=== PATIENT | female | born 1975 | race Hispanic/Latino ===

== ENCOUNTER 2016-04-28 11:39 | Emergency (ER) | payer OTHER ==
[2016-04-28 12:59] LABS: MEAN CORPUSCULAR HEMOGLOBIN 28.3 pg (27.0-33.0); MEAN CORPUSCULAR HGB CONC 33.5 g/dl (32.0-36.5); MEAN CORPUSCULAR VOLUME 84.4 fl (80.0-96.0); RED CELL DISTRIBUTION WIDTH 13.3 % (11.5-14.5); WHITE BLOOD COUNT 8.6 K/mm3 (4.0-10.0)
--- NOTE | 2016-04-28 14:05 | REP ---
Clinical: Positive test with abdominal pain and cramping. Technique: Real time goel scale ultrasound examination using transabdominal and transvaginal technique with color Doppler evaluation of the maternal ovaries and gestation if possible. Findings: Heterogeneous retroverted retroflexed uterus measures 9.4 x 4.4 x 6.2 cm with suggestion for septate configuration. Decidual reaction thickens the endometrium to 2.5 cm without intrauterine identified. Maternal ovaries are normal in appearance and vascularity without torsion. Right ovary measures 3.1 x 2.2 x 2.5 cm and includes 1.6 cm hemorrhagic corpus luteal cyst. Right RI equal 0.57. Left ovary measures 2.6 x 2.6 x 2.8 cm; RI equal 0.54. No pelvic fluid. Impression: 1. No intrauterine identified. Differential diagnosis includes early as well as spontaneous and less likely ectopic (no pelvic fluid or adnexal mass). Correlation with serial HCG levels recommended and repeat ultrasound if necessary 2. Possible septate versus bicornuate uterine configuration. Signed by Eugene Spence MD 04/28/2016 01:56 P
[2016-04-28] MEDS ORDERED: MORPHINE 4 MG/ML 1ML SYRINGE As Ordered ONE (15:41)
--- NOTE | 2016-04-28 18:14 | EDDOCDS ---
Physician Documentation [facility] Name: Fabienne Ayala Age: 40 yrs Sex: Female : 1975 Arrival Date: 04/28/2016 Time: 11:39 Bed I7 / 29 Private MD: Other - Complete Info On Cds Disposition: 04/28/16 17:55 Discharged to Home/Self Care. Impression: Spontaneous . - Condition is Stable. - Discharge Instructions: Miscarriage. - Prescriptions for Naprosyn 500 mg Oral Tablet - take 1 tablet by ORAL route 2 times per day take with food; 30 tablet. - Medication Reconciliation, Local Pharmacy Hours form. - Follow up: Emergency Department; When: As needed; Reason: Worsening of conditions. Follow up: Ana Nunn, OB; When: Call to arrange an appointment; Reason: Wound/Symptom Recheck, Recheck today's complaints, Worsening of conditions, Continuance of care. - Problem is an ongoing problem. - Symptoms have improved. Historical: - Allergies: Dilaudid (Swelling); - Home Meds: 1. pre humera daily - PMHx: none; - PSHx: Cholecystectomy; Breast Reduction; vein removal; - Social history: Smoking status: Patient states was never smoker of tobacco. No barriers to communication noted, The patient speaks fluent Bahraini, Speaks appropriately for age. - Family history: Not pertinent. - : The pt / caregiver states he / she is not on anticoagulants. Home medication list is obtained from the patient. - Exposure Risk Screening:: None identified. 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 4 in. (162.56 cm) (R); Pain 8/10; 15:28 BP 111 / 70 RA Supine (auto/reg); Pulse 81; Resp 18; Temp 98.9(O); Pulse Ox 100% on rs6 R/A; Pain 7/10; 16:14 BP 93 / 54 LA Supine (auto/lg); Pulse 57; Resp 18; Temp 98.6(O); Pulse Ox 98% on R/A; rs6 Pain 0/10; 16:45 BP 97 / 54; Pulse 70; Resp 18; Pulse Ox 98% on R/A; Pain 7/10; dls 17:27 BP 100 / 55 RA Supine (auto/lg); Pulse 73; Resp 18; Pulse Ox 97% on R/A; rs6 18:07 BP 109 / 57; Pulse 85; Resp 18; Pulse Ox 98% on R/A; Pain 4/10; dls 11:41 Body Mass Index 35.53 (93.89 kg, 162.56 cm) gr2 MDM: 12:32 Complete Blood Count Ordered. EDMS 12:32 Hcg, Serum Quantitative Ordered. EDMS 12:32 Type & Screen Ordered. EDMS 12:32 Urinalysis Ordered. EDMS 12:32 Urine Culture Ordered. EDMS 12:32 US 1st trimester Ordered. EDMS 13:05 Financial registration complete. lg 13:12 Urinalysis Reviewed. btw 13:12 Complete Blood Count Reviewed. btw 13:18 TRANSVAGINAL US Ordered. EDMS 13:21 DUPLEX SCAN LIMITED (DOPPLER) Ordered. EDMS 13:42 Hcg, Serum Quantitative Reviewed. btw 13:42 Type & Screen Reviewed. btw 13:47 Type & Screen Reviewed. btw 15:15 [facility] [place] Agreement was scanned into [employer] and attached to record. lg 15:39 morphine 4 mg Sub-Q once ordered. btw 16:15 NS 0.9% 1000 ml IV at bolus once ordered. cc10 16:16 IV Saline Lock ordered. cc10 16:16 US 1st trimester Reviewed. cc10 Administered Medications: 15:43 Drug: morphine 4 mg [morphine 4 mg/mL intravenous cartridge (1 mL)] Route: Sub-Q; Site: dls left upper arm; 16:45 Drug: NS 0.9% 1000 ml [sodium chloride 0.9 % intravenous solution] Route: IV; Rate: dls bolus; Site: right hand; Signatures: Dispatcher [employer] EDMS Liliana Coats RN RN dls Raphael Trujillo, Reg Reg lg Mark Tamez PA PA btw Dunaway, Emily, RN RN ead Coniski, Colin PARupertC PARupertC cc10 The chart was reviewed and I authenticate all verbal orders and agree with the evaluation and treatment provided.Corrections: (The following items were deleted from the chart) 16:15 16:15 Large bore IV x 2 ordered. cc10 cc10 Attachments: 15:15 [facility] Payment Agreement lg MTDD
--- NOTE | 2016-04-28 18:14 | EDDOCDS ---
Nurse's Notes [facility] Name: Fabienne Ayala Age: 40 yrs Sex: Female : 1975 Arrival Date: 04/28/2016 Time: 11:39 Bed I7 / 29 Private MD: Other - Complete Info On Cds Diagnosis: Spontaneous Presentation: 04/28 11:54 Presenting complaint: Patient states: c/o abdominal cramping, heavy vaginal bleeding, ead sudden onset this morning while at work. reports going through 2 pads in one hour. LMP 03/14/16. Risk factors: The patient reports no loss of conciousness prior to arrival. This patient has not had a hysterectomy. This patient has not begun menopause. Adult Sepsis Screening: The patient does not have new or worsening altered mentation. Patient's respiratory rate is less than 22. Systolic blood pressure is greater than 100. Patient has a qSOFA score of 0- Negative Sepsis Screen. Suicide/Homicide risk assessment- the patient denies having any suicidal and/or homicidal ideations and does not present with any other emotional, behavioral or mental health complaints. Status: The patient is a dependent. Transition of care: patient was not received from another setting of care. 11:54 Acuity: MIKEY Level 3 ead 11:54 Method Of Arrival: Walkin/Carried/Asstd ead Triage Assessment: 11:57 General: Appears in no apparent distress, uncomfortable, Behavior is appropriate for ead age, cooperative. Pain: Location: abdomen Pain currently is 7 out of 10 on a pain scale. HIV screening NA for this visit Offered previously. GI: Reports cramping. : Reports vaginal bleeding that is with clots heavy flow. Derm: Skin is pink, warm & dry. 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 pre humera daily - PMHx: none; - PSHx: Cholecystectomy; Breast Reduction; vein removal; - Social history: Smoking status: Patient states was never smoker of tobacco. No barriers to communication noted, The patient speaks fluent Cook Islander, Speaks appropriately for age. - Family history: Not pertinent. - : The pt / caregiver states he / she is not on anticoagulants. Home medication list is obtained from the patient. - Exposure Risk Screening:: None identified. Screenin:44 Screening information is obtained from the patient. Fall risk: No risks identified. dls Assistance ADL's: requires no assistance with activities of daily living. Abuse/DV Screen: The patient / caregiver reports he/she is: not in a situation that causes fear, pain or injury. Nutritional screening: No deficits noted. Advance Directives: Currently, there is no health care proxy. There is no active DNR order. There is no living will. 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 Advance directive information has not previously been placed in an [facility] medical record. home support is adequate. Assessment: 13:00 Musculoskeletal: No deficits noted. dls 14:00 General: Pt to ultrasound per pad changed prior to exam moderate amount of bright red dls vaginal bleeding without clots noted.. 15:45 General: Appears in no apparent distress, well developed, well nourished, well groomed, dls Behavior is cooperative. Neurological: No deficits noted. EENT: No deficits noted. Cardiovascular: No deficits noted. Respiratory: No deficits noted. GI: No deficits noted. : Reports vaginal bleeding that is bright red. Derm: No deficits noted. 15:46 General: Medicated pt Sub Q for abdominal discomfort awaiting evaluation by Dr missy Macedo. Pts vaginal bleeding has slowed down to light spotting at present time.. 16:46 General: Pts vs repeated B/P is dropping provider notified IV established right hand IV dls bolus infusing well pt c/o lower abdominal cramping bleeding remains spotting family at bedside.. 17:45 General: Dr Macedo here to evaluate pt.. dls Vital Signs: 11:41 BP 138 / 66; Pulse 83; Resp 18 S; Temp 97.9(O); Pulse Ox 100% on R/A; Weight 93.89 kg gr2 (R); Height 5 ft. 4 in. (162.56 cm) (R); Pain 8/10; 15:28 BP 111 / 70 RA Supine (auto/reg); Pulse 81; Resp 18; Temp 98.9(O); Pulse Ox 100% on rs6 R/A; Pain 7/10; 16:14 BP 93 / 54 LA Supine (auto/lg); Pulse 57; Resp 18; Temp 98.6(O); Pulse Ox 98% on R/A; rs6 Pain 0/10; 16:45 BP 97 / 54; Pulse 70; Resp 18; Pulse Ox 98% on R/A; Pain 7/10; dls 17:27 BP 100 / 55 RA Supine (auto/lg); Pulse 73; Resp 18; Pulse Ox 97% on R/A; rs6 18:07 BP 109 / 57; Pulse 85; Resp 18; Pulse Ox 98% on R/A; Pain 4/10; dls 11:41 Body Mass Index 35.53 (93.89 kg, 162.56 cm) gr2 Vitals: 11:41 Log In Time: April 28, 2016 at 11:41. gr2 ED Course: 11:41 Patient visited by Zayda Valentine. gr2 11:41 Other - Complete Info On Cds is Private Physician. gr2 11:41 Patient moved to Waiting gr2 11:42 Patient visited by Zayda Valentine. gr2 11:42 Patient moved to Pre RCE gr2 11:55 Triage Initiated ead 12:13 Patient moved to Triage 1 ar3 12:17 Mark Tamez PA is PHCP. btw 12:[address] MD is Attending Physician. btw 12:19 Patient visited by Mark Tamez PA. btw 12:31 Liliana Coats, RN is Primary Nurse. jc4 12:31 Patient moved to I7 jc4 12:39 Urinalysis Sent. ead 12:39 Urine Culture Sent. ead 12:52 Pt greeted and oriented to ED. Patient advised of names of staff involved in care, rs6 location of call mckenna, wait times and NPO status. Accompanied by Significant Other, Patient has correct armband on for positive identification. Placed in gown. Bed in low position. Call light in reach. Side rails up X 1. Assisted to bathroom. Cardiac monitoring not applicable on this patient. 12:52 Complete Blood Count Sent. rs6 12:52 Hcg, Serum Quantitative Sent. rs6 12:52 Type & Screen Sent. rs6 12:53 Patient visited by Sue Girard PCA. rs6 13:15 Patient moved to Ultrasound sm5 13:49 Patient moved to I7 / rs6 14:33 US 1st trimester Returned. EDMS 15:02 Patient visited by Liliana Coats, RN. dls 15:11 Patient name changed from Fabienne\S\E\S\Ayala\S\ to Fabienne\S\Linda\S\Ayala. EDMS 15:15 [facility] Payment Agreement was scanned into [employer] and attached to record. lg 15:29 Patient visited by Sue Girard, EDGE WORKER. rs6 15:44 The patient / caregiver is instructed regarding the plan of care and ED course. dls 16:00 PHCP role handed off by Mark Tamez PA cc10 16:00 Balbir Martinez PA-C is PHCP. cc10 16:15 Patient visited by Sue Girard, EDGE WORKER. rs6 17:28 Patient visited by Sue Girard EDGE WORKER. rs6 17:55 nAa Nunn OB is Referral Physician. cc10 18:08 Discontinued IV lock intact, bleeding controlled, pressure dressing applied, No dls redness/swelling at site. No procedures done that require assistance. Administered Medications: 15:43 Drug: morphine 4 mg [morphine 4 mg/mL intravenous cartridge (1 mL)] Route: Sub-Q; Site: dls left upper arm; 16:45 Drug: NS 0.9% 1000 ml [sodium chloride 0.9 % intravenous solution] Route: IV; Rate: dls bolus; Site: right hand; Order Results: Lab Order: Complete Blood Count; SPEC'M 04/28/16 12:50 Test: WHITE BLOOD COUNT; Value: 8.6; Range: 4.0-10.0; Units: K/mm3; Status: F Test: RED BLOOD COUNT; Value: 4.92; Range: 4.00-5.40; Units: M/mm3; Status: F Test: HEMOGLOBIN; Value: 13.9; Range: 12.0-16.0; Units: g/dl; Status: F Test: HEMATOCRIT; Value: 41.5; Range: 36.0-47.0; Units: %; Status: F Test: MEAN CORPUSCULAR VOLUME; Value: 84.4; Range: 80.0-96.0; Units: fl; Status: F Test: MEAN CORPUSCULAR HEMOGLOBIN; Value: 28.3; Range: 27.0-33.0; Units: pg; Status: F Test: MEAN CORPUSCULAR HGB CONC; Value: 33.5; Range: 32.0-36.5; Units: g/dl; Status: F Test: RED CELL DISTRIBUTION WIDTH; Value: 13.3; Range: 11.5-14.5; Units: %; Status: F Test: PLATELET COUNT, AUTOMATED; Value: 206; Range: 150-450; Units: k/mm3; Status: F Lab Order: Hcg, Serum Quantitative; [facility] 04/28/16 12:50 Test: HCG, SERUM QUANTITATIVE; Value: 6813; Units: MIU/ML; Status: F Test Note: ; GESTATIONAL AGE APPROXIMATE HCG RANGE (MIU/ML) 0.2-1 WEEK 5-50 1-2 WEEKS 50-500 2-3 WEEKS 100-5,000 3-4 WEEKS 500-10,000 4-5 WEEKS 1,000-50,000 5-6 WEEKS 10,000-100,000 6-8 WEEKS 15,000-200,000 2-3 MONTHS 10,000-100,000 NON FEMALES LESS THAN 3.0 Patient samples may contain human heterophilic antibodies that could react with immunoassays to give falsely elevated or depressed results. This assay has been designed to minimize interference from heterophilic antibodies. Elevated hCG levels have also been associated with trophoblastic disease and nontrophoblastic neoplasms. The possibility of having these diseases should be considered before a diagnosis of is made. This test is not intended for use as a surrogate marker for aiding in the diagnosis or monitoring the treatment of cancer patients. Siemens TraderTools methodology. Lab Order: Type & Screen; [facility]04/28/16 12:50 Test: BLOOD TYPE; Value: O POS; Status: F Test: AB SCREEN (INDIRECT [place])GEL; Value: NEGATIVE; Status: F Lab Order: Urinalysis; [facility]04/28/16 12:39 Test: APPEARANCE, URINE; Value: CLEAR; Range: CLEAR; Status: F Test: COLOR, URINE; Value: STRAW; Range: YELLOW; Status: F Test: PH,URINE; Value: 6.0; Range: 5.0-9.0; Units: UNITS; Status: F Test: SPECIFIC GRAVITY URINE AUTO; Value: 1.002; Range: 1.002-1.035; Status: F Test: PROTEIN, URINE AUTO; Value: NEGATIVE; Range: NEGATIVE; Units: mg/dL; Status: F Test: GLUCOSE, URINE (UA) AUTO; Value: NEGATIVE; Range: NEGATIVE; Units: mg/dL; Status: F Test: KETONE, URINE AUTO; Value: NEGATIVE; Range: NEGATIVE; Units: mg/dL; Status: F Test: UROBILINOGEN, URINE AUTO; Value: 0.2; Range: 0.0-2.0; Units: mg/dL; Status: F Test: BILIRUBIN, URINE AUTO; Value: NEGATIVE; Range: NEGATIVE; Status: F Test: NITRITE, URINE AUTO; Value: NEGATIVE; Range: NEGATIVE; Status: F Test: LEUKOCYTE ESTERASE, URINE AUTO; Value: NEGATIVE; Range: NEGATIVE; Status: F Test: BLOOD, URINE BLOOD; Value: 3+; Range: NEGATIVE; Abnormal: Above high normal; Status: F Test: WBC, URINE AUTO; Value: 1; Range: 0-3; Units: /HPF; Status: F Test: RBC, URINE AUTO; Value: 13; Range: 0-3; Abnormal: Above high normal; Units: /HPF; Status: F Test: BACTERIA, URINE AUTO; Value: 1+; Range: NEGATIVE; Abnormal: Above high normal; Status: F Test: SQUAMOUS EPITHELIAL CELL UR AU; Value: 0; Range: 0-6; Units: /HPF; Status: F Test: HYALINE CAST, URINE AUTO; Value: 0; Range: 0-1; Units: /LPF; Status: F Radiology Order: US 1st trimester Test: US 1st trimester REASON FOR EXAMINATION: Bleeding; Clinical: Positive test with abdominal pain and cramping.; ; Technique: Real time goel scale ultrasound examination using transabdominal and; transvaginal technique with color Doppler evaluation of the maternal ovaries and; gestation if possible.; ; Findings:; Heterogeneous retroverted retroflexed uterus measures 9.4 x 4.4 x 6.2 cm with; suggestion for septate configuration. Decidual reaction thickens the endometrium; to 2.5 cm without intrauterine identified. Maternal ovaries are normal; in appearance and vascularity without torsion. Right ovary measures 3.1 x 2.2 x; 2.5 cm and includes 1.6 cm hemorrhagic corpus luteal cyst. Right RI equal 0.57.; Left ovary measures 2.6 x 2.6 x 2.8 cm; RI equal 0.54. No pelvic fluid.; ; Impression:; 1. No intrauterine identified. Differential diagnosis includes early; as well as spontaneous and less likely ectopic (no; pelvic fluid or adnexal mass). Correlation with serial HCG levels recommended and; repeat ultrasound if necessary; 2. Possible septate versus bicornuate uterine configuration.; ; ; Signed by; Eugene Spence MD 04/28/2016 01:56 P; Outcome: 17:55 Discharge ordered by Provider. cc10 18:08 Discharge Assessment: Patient awake, alert and oriented x 3. No cognitive and/or dls functional deficits noted. Patient verbalized understanding of disposition instructions. patient administered narcotics - yes. Pt provided with safe discharge. The following High Risk Discharge criteria are identified: None. Discharged to home via wheelchair, with significant other. Condition: stable Condition: improved. Discharge instructions given to patient, Instructed on discharge instructions, follow up and referral plans. medication usage, Demonstrated understanding of instructions, medications, Pt was receptive of discharge instructions/ teaching. Prescriptions given X 1. Ultrasound Study completed. Property sent home with patient. 18:13 Patient left the ED. dls Signatures: Dispatcher [employer] EDMS Liliana Coats RN RN dls Raphael Trujillo, Randall Reg lg Keila Robb sm5 Tisha Fagan, EDGE WORKER EDGE WORKER ar3 Mark Tamez PA PA btw Castle, Jennifer, RN RN jc4 Zayda Valentine gr2 Lin Kim,RN RN Balbir Yee PACole PA-C cc10 Sue Girard, EDGE WORKER EDGE WORKER rs6 Corrections: (The following items were deleted from the chart) 11:57 11:54 Presenting complaint: Patient states: c/o abdominal cramping, heavy vaginal ead bleeding. reports going through 2 pads in one hour. ead 11:57 11:54 Risk factors: The patient reports no loss of conciousness prior to arrival. This ead patient has not had a hysterectomy. This patient has not begun menopause. ead 12:02 11:54 Presenting complaint: Patient states: c/o abdominal cramping, heavy vaginal ead bleeding. reports going through 2 pads in one hour. LMP 03/14/16. ead MTDD
--- NOTE | 2016-04-30 19:14 | EDDOCDS ---
Nurse's Notes [facility] Name: Fabienne Ayala Age: 40 yrs Sex: Female : 1975 Arrival Date: 04/28/2016 Time: 11:39 Bed I7 / 29 Private MD: Other - Complete Info On Cds Diagnosis: Spontaneous Presentation: 04/28 11:54 Presenting complaint: Patient states: c/o abdominal cramping, heavy vaginal bleeding, ead sudden onset this morning while at work. reports going through 2 pads in one hour. LMP 03/14/16. Risk factors: The patient reports no loss of conciousness prior to arrival. This patient has not had a hysterectomy. This patient has not begun menopause. Adult Sepsis Screening: The patient does not have new or worsening altered mentation. Patient's respiratory rate is less than 22. Systolic blood pressure is greater than 100. Patient has a qSOFA score of 0- Negative Sepsis Screen. Suicide/Homicide risk assessment- the patient denies having any suicidal and/or homicidal ideations and does not present with any other emotional, behavioral or mental health complaints. Status: The patient is a dependent. Transition of care: patient was not received from another setting of care. 11:54 Acuity: MIKEY Level 3 ead 11:54 Method Of Arrival: Walkin/Carried/Asstd ead Triage Assessment: 11:57 General: Appears in no apparent distress, uncomfortable, Behavior is appropriate for ead age, cooperative. Pain: Location: abdomen Pain currently is 7 out of 10 on a pain scale. HIV screening NA for this visit Offered previously. GI: Reports cramping. : Reports vaginal bleeding that is with clots heavy flow. Derm: Skin is pink, warm & dry. 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 pre humera daily - PMHx: none; - PSHx: Cholecystectomy; Breast Reduction; vein removal; - Social history: Smoking status: Patient states was never smoker of tobacco. No barriers to communication noted, The patient speaks fluent Somali, Speaks appropriately for age. - Family history: Not pertinent. - : The pt / caregiver states he / she is not on anticoagulants. Home medication list is obtained from the patient. - Exposure Risk Screening:: None identified. Screenin:44 Screening information is obtained from the patient. Fall risk: No risks identified. dls Assistance ADL's: requires no assistance with activities of daily living. Abuse/DV Screen: The patient / caregiver reports he/she is: not in a situation that causes fear, pain or injury. Nutritional screening: No deficits noted. Advance Directives: Currently, there is no health care proxy. There is no active DNR order. There is no living will. 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 Advance directive information has not previously been placed in an [facility] medical record. home support is adequate. Assessment: 13:00 Musculoskeletal: No deficits noted. dls 14:00 General: Pt to ultrasound per pad changed prior to exam moderate amount of bright red dls vaginal bleeding without clots noted.. 15:45 General: Appears in no apparent distress, well developed, well nourished, well groomed, dls Behavior is cooperative. Neurological: No deficits noted. EENT: No deficits noted. Cardiovascular: No deficits noted. Respiratory: No deficits noted. GI: No deficits noted. : Reports vaginal bleeding that is bright red. Derm: No deficits noted. 15:46 General: Medicated pt Sub Q for abdominal discomfort awaiting evaluation by Dr missy Macedo. Pts vaginal bleeding has slowed down to light spotting at present time.. 16:46 General: Pts vs repeated B/P is dropping provider notified IV established right hand IV dls bolus infusing well pt c/o lower abdominal cramping bleeding remains spotting family at bedside.. 17:45 General: Dr Macedo here to evaluate pt.. dls Vital Signs: 11:41 BP 138 / 66; Pulse 83; Resp 18 S; Temp 97.9(O); Pulse Ox 100% on R/A; Weight 93.89 kg gr2 (R); Height 5 ft. 4 in. (162.56 cm) (R); Pain 8/10; 15:28 BP 111 / 70 RA Supine (auto/reg); Pulse 81; Resp 18; Temp 98.9(O); Pulse Ox 100% on rs6 R/A; Pain 7/10; 16:14 BP 93 / 54 LA Supine (auto/lg); Pulse 57; Resp 18; Temp 98.6(O); Pulse Ox 98% on R/A; rs6 Pain 0/10; 16:45 BP 97 / 54; Pulse 70; Resp 18; Pulse Ox 98% on R/A; Pain 7/10; dls 17:27 BP 100 / 55 RA Supine (auto/lg); Pulse 73; Resp 18; Pulse Ox 97% on R/A; rs6 18:07 BP 109 / 57; Pulse 85; Resp 18; Pulse Ox 98% on R/A; Pain 4/10; dls 11:41 Body Mass Index 35.53 (93.89 kg, 162.56 cm) gr2 Vitals: 11:41 Log In Time: April 28, 2016 at 11:41. gr2 ED Course: 11:41 Patient visited by Zayda Valentine. gr2 11:41 Other - Complete Info On Cds is Private Physician. gr2 11:41 Patient moved to Waiting gr2 11:42 Patient visited by Zayda Valentine. gr2 11:42 Patient moved to Pre RCE gr2 11:55 Triage Initiated ead 12:13 Patient moved to Triage 1 ar3 12:17 Mark Tamez PA is PHCP. btw 12:[address] MD is Attending Physician. btw 12:19 Patient visited by Mark Tamez PA. btw 12:31 Liliana Coats, RN is Primary Nurse. jc4 12:31 Patient moved to I7 jc4 12:39 Urinalysis Sent. ead 12:39 Urine Culture Sent. ead 12:52 Pt greeted and oriented to ED. Patient advised of names of staff involved in care, rs6 location of call mckenna, wait times and NPO status. Accompanied by Significant Other, Patient has correct armband on for positive identification. Placed in gown. Bed in low position. Call light in reach. Side rails up X 1. Assisted to bathroom. Cardiac monitoring not applicable on this patient. 12:52 Complete Blood Count Sent. rs6 12:52 Hcg, Serum Quantitative Sent. rs6 12:52 Type & Screen Sent. rs6 12:53 Patient visited by Sue Girard PCA. rs6 13:15 Patient moved to Ultrasound sm5 13:49 Patient moved to I7 / rs6 14:33 US 1st trimester Returned. EDMS 15:02 Patient visited by Liliana Coats, RN. dls 15:11 Patient name changed from Fabienne\S\E\S\Ayala\S\ to Fabienne\S\Linda\S\Ayala. EDMS 15:15 [facility] Payment Agreement was scanned into [employer] and attached to record. lg 15:29 Patient visited by Sue Girard STORAGE SPECIALIST. rs6 15:44 The patient / caregiver is instructed regarding the plan of care and ED course. dls 16:00 PHCP role handed off by Mark Tamez PA cc10 16:00 Balbir Martinez PA-C is PHCP. cc10 16:15 Patient visited by Sue Girard STORAGE SPECIALIST. rs6 17:28 Patient visited by Sue Girard STORAGE SPECIALIST. rs6 17:55 Ana Nunn OB is Referral Physician. cc10 18:08 Discontinued IV lock intact, bleeding controlled, pressure dressing applied, No dls redness/swelling at site. No procedures done that require assistance. 04/29 13:29 T-Sheet-- Draft Copy was scanned into [employer] and attached to record. gb Administered Medications: 04/28 15:43 Drug: morphine 4 mg [morphine 4 mg/mL intravenous cartridge (1 mL)] Route: Sub-Q; Site: dls left upper arm; 16:45 Drug: NS 0.9% 1000 ml [sodium chloride 0.9 % intravenous solution] Route: IV; Rate: dls bolus; Site: right hand; Order Results: Lab Order: Complete Blood Count; SPEC'M 04/28/16 12:50 Test: WHITE BLOOD COUNT; Value: 8.6; Range: 4.0-10.0; Units: K/mm3; Status: F Test: RED BLOOD COUNT; Value: 4.92; Range: 4.00-5.40; Units: M/mm3; Status: F Test: HEMOGLOBIN; Value: 13.9; Range: 12.0-16.0; Units: g/dl; Status: F Test: HEMATOCRIT; Value: 41.5; Range: 36.0-47.0; Units: %; Status: F Test: MEAN CORPUSCULAR VOLUME; Value: 84.4; Range: 80.0-96.0; Units: fl; Status: F Test: MEAN CORPUSCULAR HEMOGLOBIN; Value: 28.3; Range: 27.0-33.0; Units: pg; Status: F Test: MEAN CORPUSCULAR HGB CONC; Value: 33.5; Range: 32.0-36.5; Units: g/dl; Status: F Test: RED CELL DISTRIBUTION WIDTH; Value: 13.3; Range: 11.5-14.5; Units: %; Status: F Test: PLATELET COUNT, AUTOMATED; Value: 206; Range: 150-450; Units: k/mm3; Status: F Lab Order: Hcg, Serum Quantitative; SPEC 04/28/16 12:50 Test: HCG, SERUM QUANTITATIVE; Value: 6813; Units: MIU/ML; Status: F Test Note: ; GESTATIONAL AGE APPROXIMATE HCG RANGE (MIU/ML) 0.2-1 WEEK 5-50 1-2 WEEKS 50-500 2-3 WEEKS 100-5,000 3-4 WEEKS 500-10,000 4-5 WEEKS 1,000-50,000 5-6 WEEKS 10,000-100,000 6-8 WEEKS 15,000-200,000 2-3 MONTHS 10,000-100,000 NON FEMALES LESS THAN 3.0 Patient samples may contain human heterophilic antibodies that could react with immunoassays to give falsely elevated or depressed results. This assay has been designed to minimize interference from heterophilic antibodies. Elevated hCG levels have also been associated with trophoblastic disease and nontrophoblastic neoplasms. The possibility of having these diseases should be considered before a diagnosis of is made. This test is not intended for use as a surrogate marker for aiding in the diagnosis or monitoring the treatment of cancer patients. [employer] methodology. Lab Order: Type & Screen; SPEC04/28/16 12:50 Test: BLOOD TYPE; Value: O POS; Status: F Test: AB SCREEN (INDIRECT [place])GEL; Value: NEGATIVE; Status: F Lab Order: Urinalysis; SPEC 04/28/16 12:39 Test: APPEARANCE, URINE; Value: CLEAR; Range: CLEAR; Status: F Test: COLOR, URINE; Value: STRAW; Range: YELLOW; Status: F Test: PH,URINE; Value: 6.0; Range: 5.0-9.0; Units: UNITS; Status: F Test: SPECIFIC GRAVITY URINE AUTO; Value: 1.002; Range: 1.002-1.035; Status: F Test: PROTEIN, URINE AUTO; Value: NEGATIVE; Range: NEGATIVE; Units: mg/dL; Status: F Test: GLUCOSE, URINE (UA) AUTO; Value: NEGATIVE; Range: NEGATIVE; Units: mg/dL; Status: F Test: KETONE, URINE AUTO; Value: NEGATIVE; Range: NEGATIVE; Units: mg/dL; Status: F Test: UROBILINOGEN, URINE AUTO; Value: 0.2; Range: 0.0-2.0; Units: mg/dL; Status: F Test: BILIRUBIN, URINE AUTO; Value: NEGATIVE; Range: NEGATIVE; Status: F Test: NITRITE, URINE AUTO; Value: NEGATIVE; Range: NEGATIVE; Status: F Test: LEUKOCYTE ESTERASE, URINE AUTO; Value: NEGATIVE; Range: NEGATIVE; Status: F Test: BLOOD, URINE BLOOD; Value: 3+; Range: NEGATIVE; Abnormal: Above high normal; Status: F Test: WBC, URINE AUTO; Value: 1; Range: 0-3; Units: /HPF; Status: F Test: RBC, URINE AUTO; Value: 13; Range: 0-3; Abnormal: Above high normal; Units: /HPF; Status: F Test: BACTERIA, URINE AUTO; Value: 1+; Range: NEGATIVE; Abnormal: Above high normal; Status: F Test: SQUAMOUS EPITHELIAL CELL UR AU; Value: 0; Range: 0-6; Units: /HPF; Status: F Test: HYALINE CAST, URINE AUTO; Value: 0; Range: 0-1; Units: /LPF; Status: F Lab Order: Urine Culture; SPEC'M 04/28/16 12:39 Test: URINE CULTURE; Value: URINE CULTURE RESULT NO GROWTH CLINICAL SIGNIFICANCE 1 ORGANISM; Status: F Radiology Order: US 1st trimester Test: US 1st trimester REASON FOR EXAMINATION: Bleeding; Clinical: Positive test with abdominal pain and cramping.; ; Technique: Real time goel scale ultrasound examination using transabdominal and; transvaginal technique with color Doppler evaluation of the maternal ovaries and; gestation if possible.; ; Findings:; Heterogeneous retroverted retroflexed uterus measures 9.4 x 4.4 x 6.2 cm with; suggestion for septate configuration. Decidual reaction thickens the endometrium; to 2.5 cm without intrauterine identified. Maternal ovaries are normal; in appearance and vascularity without torsion. Right ovary measures 3.1 x 2.2 x; 2.5 cm and includes 1.6 cm hemorrhagic corpus luteal cyst. Right RI equal 0.57.; Left ovary measures 2.6 x 2.6 x 2.8 cm; RI equal 0.54. No pelvic fluid.; ; Impression:; 1. No intrauterine identified. Differential diagnosis includes early; as well as spontaneous and less likely ectopic (no; pelvic fluid or adnexal mass). Correlation with serial HCG levels recommended and; repeat ultrasound if necessary; 2. Possible septate versus bicornuate uterine configuration.; ; ; Signed by; Eugene Spence MD 04/28/2016 01:56 P; Outcome: 17:55 Discharge ordered by Provider. cc10 18:08 Discharge Assessment: Patient awake, alert and oriented x 3. No cognitive and/or dls functional deficits noted. Patient verbalized understanding of disposition instructions. patient administered narcotics - yes. Pt provided with safe discharge. The following High Risk Discharge criteria are identified: None. Discharged to home via wheelchair, with significant other. Condition: stable Condition: improved. Discharge instructions given to patient, Instructed on discharge instructions, follow up and referral plans. medication usage, Demonstrated understanding of instructions, medications, Pt was receptive of discharge instructions/ teaching. Prescriptions given X 1. Ultrasound Study completed. Property sent home with patient. 18:13 Patient left the ED. dls Signatures: Dispatcher [employer] EDMS Liliana Coats RN RN dls Capri Sawant, Reg Reg gb Raphael Trujillo, Reg Reg lg Cezar, Keila sm5 Tisha Fagan, STORAGE SPECIALIST STORAGE SPECIALIST ar3 Mark Tamez PA PA btw Castle, Jennifer, RN RN jc4 Zayda Valentine gr2 Lin Kim RN RN albad Balbir Martinez, ISIDORO PACole cc10 Sue Girard, STORAGE SPECIALIST STORAGE SPECIALIST rs6 Corrections: (The following items were deleted from the chart) 11:57 11:54 Presenting complaint: Patient states: c/o abdominal cramping, heavy vaginal ead bleeding. reports going through 2 pads in one hour. ead 11:57 11:54 Risk factors: The patient reports no loss of conciousness prior to arrival. This ead patient has not had a hysterectomy. This patient has not begun menopause. ead 12:02 11:54 Presenting complaint: Patient states: c/o abdominal cramping, heavy vaginal ead bleeding. reports going through 2 pads in one hour. LMP 03/14/16. ead Chart Complete MTDD
--- NOTE | 2016-04-30 19:14 | EDDOCDS ---
Physician Documentation [facility] Name: Fabienne Ayala Age: 40 yrs Sex: Female : 1975 Arrival Date: 04/28/2016 Time: 11:39 Bed I7 / 29 Private MD: Other - Complete Info On Cds Disposition: 04/28/16 17:55 Discharged to Home/Self Care. Impression: Spontaneous . - Condition is Stable. - Discharge Instructions: Miscarriage. - Prescriptions for Naprosyn 500 mg Oral Tablet - take 1 tablet by ORAL route 2 times per day take with food; 30 tablet. - Medication Reconciliation, Local Pharmacy Hours form. - Follow up: Emergency Department; When: As needed; Reason: Worsening of conditions. Follow up: Ana Nunn, OB; When: Call to arrange an appointment; Reason: Wound/Symptom Recheck, Recheck today's complaints, Worsening of conditions, Continuance of care. - Problem is an ongoing problem. - Symptoms have improved. Historical: - Allergies: Dilaudid (Swelling); - Home Meds: 1. pre humera daily - PMHx: none; - PSHx: Cholecystectomy; Breast Reduction; vein removal; - Social history: Smoking status: Patient states was never smoker of tobacco. No barriers to communication noted, The patient speaks fluent Scottish, Speaks appropriately for age. - Family history: Not pertinent. - : The pt / caregiver states he / she is not on anticoagulants. Home medication list is obtained from the patient. - Exposure Risk Screening:: None identified. 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 4 in. (162.56 cm) (R); Pain 8/10; 15:28 BP 111 / 70 RA Supine (auto/reg); Pulse 81; Resp 18; Temp 98.9(O); Pulse Ox 100% on rs6 R/A; Pain 7/10; 16:14 BP 93 / 54 LA Supine (auto/lg); Pulse 57; Resp 18; Temp 98.6(O); Pulse Ox 98% on R/A; rs6 Pain 0/10; 16:45 BP 97 / 54; Pulse 70; Resp 18; Pulse Ox 98% on R/A; Pain 7/10; dls 17:27 BP 100 / 55 RA Supine (auto/lg); Pulse 73; Resp 18; Pulse Ox 97% on R/A; rs6 18:07 BP 109 / 57; Pulse 85; Resp 18; Pulse Ox 98% on R/A; Pain 4/10; dls 11:41 Body Mass Index 35.53 (93.89 kg, 162.56 cm) gr2 MDM: 12:32 Complete Blood Count Ordered. EDMS 12:32 Hcg, Serum Quantitative Ordered. EDMS 12:32 Type & Screen Ordered. EDMS 12:32 Urinalysis Ordered. EDMS 12:32 Urine Culture Ordered. EDMS 12:32 US 1st trimester Ordered. EDMS 13:05 Financial registration complete. lg 13:12 Urinalysis Reviewed. btw 13:12 Complete Blood Count Reviewed. btw 13:18 TRANSVAGINAL US Ordered. EDMS 13:21 DUPLEX SCAN LIMITED (DOPPLER) Ordered. EDMS 13:42 Hcg, Serum Quantitative Reviewed. btw 13:42 Type & Screen Reviewed. btw 13:47 Type & Screen Reviewed. btw 15:15 [facility] Payment Agreement was scanned into [employer] and attached to record. lg 15:39 morphine 4 mg Sub-Q once ordered. btw 16:15 NS 0.9% 1000 ml IV at bolus once ordered. cc10 16:16 IV Saline Lock ordered. cc10 16:16 US 1st trimester Reviewed. cc10 04/29 13:29 T-Sheet-- Draft Copy was scanned into [employer] and attached to record. gb Administered Medications: 04/28 15:43 Drug: morphine 4 mg [morphine 4 mg/mL intravenous cartridge (1 mL)] Route: Sub-Q; Site: dls left upper arm; 16:45 Drug: NS 0.9% 1000 ml [sodium chloride 0.9 % intravenous solution] Route: IV; Rate: dls bolus; Site: right hand; Signatures: Dispatcher [employer] EDLiliana Tucker RN RN dls Capri Sawant, Reg Reg gb Raphael Trujillo, Reg Reg lg Mark Tamez PA PA btw Lin KimRN RN Balbir Yee, PARupertC PACole cc10 The chart was reviewed and I authenticate all verbal orders and agree with the evaluation and treatment provided.Corrections: (The following items were deleted from the chart) 16:15 16:15 Large bore IV x 2 ordered. cc10 cc10 Attachments: 15:15 [facility] Payment Agreement lg 04/29 13:29 T-Sheet-- Draft Copy gb Chart Complete MTDD
--- NOTE | 2016-04-30 19:14 | EDDOCDS ---
Physician Documentation [facility] Name: Fabienne Ayala Age: 40 yrs Sex: Female : 1975 Arrival Date: 04/28/2016 Time: 11:39 Bed I7 / 29 Private MD: Other - Complete Info On Cds Disposition: 04/28/16 17:55 Discharged to Home/Self Care. Impression: Spontaneous . - Condition is Stable. - Discharge Instructions: Miscarriage. - Prescriptions for Naprosyn 500 mg Oral Tablet - take 1 tablet by ORAL route 2 times per day take with food; 30 tablet. - Medication Reconciliation, Local Pharmacy Hours form. - Follow up: Emergency Department; When: As needed; Reason: Worsening of conditions. Follow up: Ana Nunn, OB; When: Call to arrange an appointment; Reason: Wound/Symptom Recheck, Recheck today's complaints, Worsening of conditions, Continuance of care. - Problem is an ongoing problem. - Symptoms have improved. Historical: - Allergies: Dilaudid (Swelling); - Home Meds: 1. pre humera daily - PMHx: none; - PSHx: Cholecystectomy; Breast Reduction; vein removal; - Social history: Smoking status: Patient states was never smoker of tobacco. No barriers to communication noted, The patient speaks fluent Bahraini, Speaks appropriately for age. - Family history: Not pertinent. - : The pt / caregiver states he / she is not on anticoagulants. Home medication list is obtained from the patient. - Exposure Risk Screening:: None identified. 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 4 in. (162.56 cm) (R); Pain 8/10; 15:28 BP 111 / 70 RA Supine (auto/reg); Pulse 81; Resp 18; Temp 98.9(O); Pulse Ox 100% on rs6 R/A; Pain 7/10; 16:14 BP 93 / 54 LA Supine (auto/lg); Pulse 57; Resp 18; Temp 98.6(O); Pulse Ox 98% on R/A; rs6 Pain 0/10; 16:45 BP 97 / 54; Pulse 70; Resp 18; Pulse Ox 98% on R/A; Pain 7/10; dls 17:27 BP 100 / 55 RA Supine (auto/lg); Pulse 73; Resp 18; Pulse Ox 97% on R/A; rs6 18:07 BP 109 / 57; Pulse 85; Resp 18; Pulse Ox 98% on R/A; Pain 4/10; dls 11:41 Body Mass Index 35.53 (93.89 kg, 162.56 cm) gr2 MDM: 12:32 Complete Blood Count Ordered. EDMS 12:32 Hcg, Serum Quantitative Ordered. EDMS 12:32 Type & Screen Ordered. EDMS 12:32 Urinalysis Ordered. EDMS 12:32 Urine Culture Ordered. EDMS 12:32 US 1st trimester Ordered. EDMS 13:05 Financial registration complete. lg 13:12 Urinalysis Reviewed. btw 13:12 Complete Blood Count Reviewed. btw 13:18 TRANSVAGINAL US Ordered. EDMS 13:21 DUPLEX SCAN LIMITED (DOPPLER) Ordered. EDMS 13:42 Hcg, Serum Quantitative Reviewed. btw 13:42 Type & Screen Reviewed. btw 13:47 Type & Screen Reviewed. btw 15:15 [facility] Payment Agreement was scanned into [employer] and attached to record. lg 15:39 morphine 4 mg Sub-Q once ordered. btw 16:15 NS 0.9% 1000 ml IV at bolus once ordered. cc10 16:16 IV Saline Lock ordered. cc10 16:16 US 1st trimester Reviewed. cc10 04/29 13:29 T-Sheet-- Draft Copy was scanned into [employer] and attached to record. gb Administered Medications: 04/28 15:43 Drug: morphine 4 mg [morphine 4 mg/mL intravenous cartridge (1 mL)] Route: Sub-Q; Site: dls left upper arm; 16:45 Drug: NS 0.9% 1000 ml [sodium chloride 0.9 % intravenous solution] Route: IV; Rate: dls bolus; Site: right hand; Signatures: Dispatcher [employer] EDLiliana Tucker RN RN dls Capri Sawant, Reg Reg gb Raphael Trujillo, Reg Reg lg Mark Tamez PA PA btw Lin KimRN RN Balbir Yee, PARupertC PACole cc10 The chart was reviewed and I authenticate all verbal orders and agree with the evaluation and treatment provided.Corrections: (The following items were deleted from the chart) 16:15 16:15 Large bore IV x 2 ordered. cc10 cc10 Attachments: 15:15 [facility] Payment Agreement lg 04/29 13:29 T-Sheet-- Draft Copy gb Chart Complete MTDD
--- NOTE | 2016-05-07 12:43 | EDDOCDS ---
Physician Documentation [facility] Name: Fabienne Ayala Age: 40 yrs Sex: Female : 1975 Arrival Date: 04/28/2016 Time: 11:39 Bed I7 / 29 Private MD: Other - Complete Info On Cds Disposition: 04/28/16 17:55 Discharged to Home/Self Care. Impression: Spontaneous . - Condition is Stable. - Discharge Instructions: Miscarriage. - Prescriptions for Naprosyn 500 mg Oral Tablet - take 1 tablet by ORAL route 2 times per day take with food; 30 tablet. - Medication Reconciliation, Local Pharmacy Hours form. - Follow up: Emergency Department; When: As needed; Reason: Worsening of conditions. Follow up: Ana Nunn, OB; When: Call to arrange an appointment; Reason: Wound/Symptom Recheck, Recheck today's complaints, Worsening of conditions, Continuance of care. - Problem is an ongoing problem. - Symptoms have improved. Historical: - Allergies: Dilaudid (Swelling); - Home Meds: 1. pre humera daily - PMHx: none; - PSHx: Cholecystectomy; Breast Reduction; vein removal; - Social history: Smoking status: Patient states was never smoker of tobacco. No barriers to communication noted, The patient speaks fluent Guamanian, Speaks appropriately for age. - Family history: Not pertinent. - : The pt / caregiver states he / she is not on anticoagulants. Home medication list is obtained from the patient. - Exposure Risk Screening:: None identified. 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 4 in. (162.56 cm) (R); Pain 8/10; 15:28 BP 111 / 70 RA Supine (auto/reg); Pulse 81; Resp 18; Temp 98.9(O); Pulse Ox 100% on rs6 R/A; Pain 7/10; 16:14 BP 93 / 54 LA Supine (auto/lg); Pulse 57; Resp 18; Temp 98.6(O); Pulse Ox 98% on R/A; rs6 Pain 0/10; 16:45 BP 97 / 54; Pulse 70; Resp 18; Pulse Ox 98% on R/A; Pain 7/10; dls 17:27 BP 100 / 55 RA Supine (auto/lg); Pulse 73; Resp 18; Pulse Ox 97% on R/A; rs6 18:07 BP 109 / 57; Pulse 85; Resp 18; Pulse Ox 98% on R/A; Pain 4/10; dls 11:41 Body Mass Index 35.53 (93.89 kg, 162.56 cm) gr2 MDM: 12:32 Complete Blood Count Ordered. EDMS 12:32 Hcg, Serum Quantitative Ordered. EDMS 12:32 Type & Screen Ordered. EDMS 12:32 Urinalysis Ordered. EDMS 12:32 Urine Culture Ordered. EDMS 12:32 US 1st trimester Ordered. EDMS 13:05 Financial registration complete. lg 13:12 Urinalysis Reviewed. btw 13:12 Complete Blood Count Reviewed. btw 13:18 TRANSVAGINAL US Ordered. EDMS 13:21 DUPLEX SCAN LIMITED (DOPPLER) Ordered. EDMS 13:42 Hcg, Serum Quantitative Reviewed. btw 13:42 Type & Screen Reviewed. btw 13:47 Type & Screen Reviewed. btw 15:15 [facility] [place] Payment Agreement was scanned into [employer] and attached to record. lg 15:39 morphine 4 mg Sub-Q once ordered. btw 16:15 NS 0.9% 1000 ml IV at bolus once ordered. cc10 16:16 IV Saline Lock ordered. cc10 16:16 US 1st trimester Reviewed. cc10 04/29 13:29 T-Sheet-- Draft Copy was scanned into [employer] and attached to record. gb Administered Medications: 04/28 15:43 Drug: morphine 4 mg [morphine 4 mg/mL intravenous cartridge (1 mL)] Route: Sub-Q; Site: dls left upper arm; 16:45 Drug: NS 0.9% 1000 ml [sodium chloride 0.9 % intravenous solution] Route: IV; Rate: dls bolus; Site: right hand; Signatures: Dispatcher [employer]Host EDLiliana Tucker RN RN dls Capri Sawant, Reg Reg gb Raphael Trujillo, Reg Reg lg Mark Tamez PA PA btw Lin KimRN RN Balbir Yee, PARupertC PARupertC cc10 The chart was reviewed and I authenticate all verbal orders and agree with the evaluation and treatment provided.Corrections: (The following items were deleted from the chart) 16:15 16:15 Large bore IV x 2 ordered. cc10 cc10 Attachments: 15:15 [facility] Payment Agreement lg Chart Complete MTDD
--- NOTE | 2016-05-07 12:43 | EDDOCDS ---
Nurse's Notes [facility] Name: Fabienne Ayala Age: 40 yrs Sex: Female : 1975 Arrival Date: 04/28/2016 Time: 11:39 Bed I7 / 29 Private MD: Other - Complete Info On Cds Diagnosis: Spontaneous Presentation: 04/28 11:54 Presenting complaint: Patient states: c/o abdominal cramping, heavy vaginal bleeding, ead sudden onset this morning while at work. reports going through 2 pads in one hour. LMP 03/14/16. Risk factors: The patient reports no loss of conciousness prior to arrival. This patient has not had a hysterectomy. This patient has not begun menopause. Adult Sepsis Screening: The patient does not have new or worsening altered mentation. Patient's respiratory rate is less than 22. Systolic blood pressure is greater than 100. Patient has a qSOFA score of 0- Negative Sepsis Screen. Suicide/Homicide risk assessment- the patient denies having any suicidal and/or homicidal ideations and does not present with any other emotional, behavioral or mental health complaints. Status: The patient is a dependent. Transition of care: patient was not received from another setting of care. 11:54 Acuity: MIKEY Level 3 ead 11:54 Method Of Arrival: Walkin/Carried/Asstd ead Triage Assessment: 11:57 General: Appears in no apparent distress, uncomfortable, Behavior is appropriate for ead age, cooperative. Pain: Location: abdomen Pain currently is 7 out of 10 on a pain scale. HIV screening NA for this visit Offered previously. GI: Reports cramping. : Reports vaginal bleeding that is with clots heavy flow. Derm: Skin is pink, warm & dry. 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 pre humera daily - PMHx: none; - PSHx: Cholecystectomy; Breast Reduction; vein removal; - Social history: Smoking status: Patient states was never smoker of tobacco. No barriers to communication noted, The patient speaks fluent Citizen Of [place], Speaks appropriately for age. - Family history: Not pertinent. - : The pt / caregiver states he / she is not on anticoagulants. Home medication list is obtained from the patient. - Exposure Risk Screening:: None identified. Screenin:44 Screening information is obtained from the patient. Fall risk: No risks identified. dls Assistance ADL's: requires no assistance with activities of daily living. Abuse/DV Screen: The patient / caregiver reports he/she is: not in a situation that causes fear, pain or injury. Nutritional screening: No deficits noted. Advance Directives: Currently, there is no health care proxy. There is no active DNR order. There is no living will. There is no Power of [place] Rider. Advance directive information has not previously been placed in an [facility] medical record. home support is adequate. Assessment: 13:00 Musculoskeletal: No deficits noted. dls 14:00 General: Pt to ultrasound per pad changed prior to exam moderate amount of bright red dls vaginal bleeding without clots noted.. 15:45 General: Appears in no apparent distress, well developed, well nourished, well groomed, dls Behavior is cooperative. Neurological: No deficits noted. EENT: No deficits noted. Cardiovascular: No deficits noted. Respiratory: No deficits noted. GI: No deficits noted. : Reports vaginal bleeding that is bright red. Derm: No deficits noted. 15:46 General: Medicated pt Sub Q for abdominal discomfort awaiting evaluation by Dr missy Macedo. Pts vaginal bleeding has slowed down to light spotting at present time.. 16:46 General: Pts vs repeated B/P is dropping provider notified IV established right hand IV dls bolus infusing well pt c/o lower abdominal cramping bleeding remains spotting family at bedside.. 17:45 General: Dr Macedo here to evaluate pt.. dls Vital Signs: 11:41 BP 138 / 66; Pulse 83; Resp 18 S; Temp 97.9(O); Pulse Ox 100% on R/A; Weight 93.89 kg gr2 (R); Height 5 ft. 4 in. (162.56 cm) (R); Pain 8/10; 15:28 BP 111 / 70 RA Supine (auto/reg); Pulse 81; Resp 18; Temp 98.9(O); Pulse Ox 100% on rs6 R/A; Pain 7/10; 16:14 BP 93 / 54 LA Supine (auto/lg); Pulse 57; Resp 18; Temp 98.6(O); Pulse Ox 98% on R/A; rs6 Pain 0/10; 16:45 BP 97 / 54; Pulse 70; Resp 18; Pulse Ox 98% on R/A; Pain 7/10; dls 17:27 BP 100 / 55 RA Supine (auto/lg); Pulse 73; Resp 18; Pulse Ox 97% on R/A; rs6 18:07 BP 109 / 57; Pulse 85; Resp 18; Pulse Ox 98% on R/A; Pain 4/10; dls 11:41 Body Mass Index 35.53 (93.89 kg, 162.56 cm) gr2 Vitals: 11:41 Log In Time: April 28, 2016 at 11:41. gr2 ED Course: 11:41 Patient visited by Zayda Valentine. gr2 11:41 Other - Complete Info On Cds is Private Physician. gr2 11:41 Patient moved to Waiting gr2 11:42 Patient visited by Zayda Valentine. gr2 11:42 Patient moved to Pre RCE gr2 11:55 Triage Initiated ead 12:13 Patient moved to Triage 1 ar3 12:17 Mark Tamez PA is PHCP. btw 12:[address] MD is Attending Physician. btw 12:19 Patient visited by Mark Tamez PA. btw 12:31 Liliana Coats, RN is Primary Nurse. jc4 12:31 Patient moved to I7 jc4 12:39 Urinalysis Sent. ead 12:39 Urine Culture Sent. ead 12:52 Pt greeted and oriented to ED. Patient advised of names of staff involved in care, rs6 location of call mckenna, wait times and NPO status. Accompanied by Significant Other, Patient has correct armband on for positive identification. Placed in gown. Bed in low position. Call light in reach. Side rails up X 1. Assisted to bathroom. Cardiac monitoring not applicable on this patient. 12:52 Complete Blood Count Sent. rs6 12:52 Hcg, Serum Quantitative Sent. rs6 12:52 Type & Screen Sent. rs6 12:53 Patient visited by Sue Girard PCA. rs6 13:15 Patient moved to Ultrasound sm5 13:49 Patient moved to I7 / rs6 14:33 US 1st trimester Returned. EDMS 15:02 Patient visited by Liliana Coats, RN. dls 15:11 Patient name changed from Fabienne\S\E\S\Ayala\S\ to Fabienne\S\Linda\S\Ayala. EDMS 15:15 [facility] Agreement was scanned into [employer] and attached to record. lg 15:29 Patient visited by Sue Girard WEAPONS OFFICER. rs6 15:44 The patient / caregiver is instructed regarding the plan of care and ED course. dls 16:00 PHCP role handed off by Mark Tamez PA cc10 16:00 Balbir Martinez PA-C is PHCP. cc10 16:15 Patient visited by Sue Girard WEAPONS OFFICER. rs6 17:28 Patient visited by Sue Girard WEAPONS OFFICER. rs6 17:55 Ana Nunn OB is Referral Physician. cc10 18:08 Discontinued IV lock intact, bleeding controlled, pressure dressing applied, No dls redness/swelling at site. No procedures done that require assistance. 04/29 13:29 T-Sheet-- Draft Copy was scanned into [employer] and attached to record. gb Administered Medications: 04/28 15:43 Drug: morphine 4 mg [morphine 4 mg/mL intravenous cartridge (1 mL)] Route: Sub-Q; Site: dls left upper arm; 16:45 Drug: NS 0.9% 1000 ml [sodium chloride 0.9 % intravenous solution] Route: IV; Rate: dls bolus; Site: right hand; Order Results: Lab Order: Complete Blood Count; SPEC'M 04/28/16 12:50 Test: WHITE BLOOD COUNT; Value: 8.6; Range: 4.0-10.0; Units: K/mm3; Status: F Test: RED BLOOD COUNT; Value: 4.92; Range: 4.00-5.40; Units: M/mm3; Status: F Test: HEMOGLOBIN; Value: 13.9; Range: 12.0-16.0; Units: g/dl; Status: F Test: HEMATOCRIT; Value: 41.5; Range: 36.0-47.0; Units: %; Status: F Test: MEAN CORPUSCULAR VOLUME; Value: 84.4; Range: 80.0-96.0; Units: fl; Status: F Test: MEAN CORPUSCULAR HEMOGLOBIN; Value: 28.3; Range: 27.0-33.0; Units: pg; Status: F Test: MEAN CORPUSCULAR HGB CONC; Value: 33.5; Range: 32.0-36.5; Units: g/dl; Status: F Test: RED CELL DISTRIBUTION WIDTH; Value: 13.3; Range: 11.5-14.5; Units: %; Status: F Test: PLATELET COUNT, AUTOMATED; Value: 206; Range: 150-450; Units: k/mm3; Status: F Lab Order: Hcg, Serum Quantitative; SPEC 04/28/16 12:50 Test: HCG, SERUM QUANTITATIVE; Value: 6813; Units: MIU/ML; Status: F Test Note: ; GESTATIONAL AGE APPROXIMATE HCG RANGE (MIU/ML) 0.2-1 WEEK 5-50 1-2 WEEKS 50-500 2-3 WEEKS 100-5,000 3-4 WEEKS 500-10,000 4-5 WEEKS 1,000-50,000 5-6 WEEKS 10,000-100,000 6-8 WEEKS 15,000-200,000 2-3 MONTHS 10,000-100,000 NON FEMALES LESS THAN 3.0 Patient samples may contain human heterophilic antibodies that could react with immunoassays to give falsely elevated or depressed results. This assay has been designed to minimize interference from heterophilic antibodies. Elevated hCG levels have also been associated with trophoblastic disease and nontrophoblastic neoplasms. The possibility of having these diseases should be considered before a diagnosis of is made. This test is not intended for use as a surrogate marker for aiding in the diagnosis or monitoring the treatment of cancer patients. Siemens Piccsy methodology. Lab Order: Type & Screen; SPEC04/28/16 12:50 Test: BLOOD TYPE; Value: O POS; Status: F Test: AB SCREEN (INDIRECT [place])GEL; Value: NEGATIVE; Status: F Lab Order: Urinalysis; SPEC 04/28/16 12:39 Test: APPEARANCE, URINE; Value: CLEAR; Range: CLEAR; Status: F Test: COLOR, URINE; Value: STRAW; Range: YELLOW; Status: F Test: PH,URINE; Value: 6.0; Range: 5.0-9.0; Units: UNITS; Status: F Test: SPECIFIC GRAVITY URINE AUTO; Value: 1.002; Range: 1.002-1.035; Status: F Test: PROTEIN, URINE AUTO; Value: NEGATIVE; Range: NEGATIVE; Units: mg/dL; Status: F Test: GLUCOSE, URINE (UA) AUTO; Value: NEGATIVE; Range: NEGATIVE; Units: mg/dL; Status: F Test: KETONE, URINE AUTO; Value: NEGATIVE; Range: NEGATIVE; Units: mg/dL; Status: F Test: UROBILINOGEN, URINE AUTO; Value: 0.2; Range: 0.0-2.0; Units: mg/dL; Status: F Test: BILIRUBIN, URINE AUTO; Value: NEGATIVE; Range: NEGATIVE; Status: F Test: NITRITE, URINE AUTO; Value: NEGATIVE; Range: NEGATIVE; Status: F Test: LEUKOCYTE ESTERASE, URINE AUTO; Value: NEGATIVE; Range: NEGATIVE; Status: F Test: BLOOD, URINE BLOOD; Value: 3+; Range: NEGATIVE; Abnormal: Above high normal; Status: F Test: WBC, URINE AUTO; Value: 1; Range: 0-3; Units: /HPF; Status: F Test: RBC, URINE AUTO; Value: 13; Range: 0-3; Abnormal: Above high normal; Units: /HPF; Status: F Test: BACTERIA, URINE AUTO; Value: 1+; Range: NEGATIVE; Abnormal: Above high normal; Status: F Test: SQUAMOUS EPITHELIAL CELL UR AU; Value: 0; Range: 0-6; Units: /HPF; Status: F Test: HYALINE CAST, URINE AUTO; Value: 0; Range: 0-1; Units: /LPF; Status: F Lab Order: Urine Culture; SPEC'M 04/28/16 12:39 Test: URINE CULTURE; Value: URINE CULTURE RESULT NO GROWTH CLINICAL SIGNIFICANCE 1 ORGANISM; Status: F Radiology Order: US 1st trimester Test: US 1st trimester REASON FOR EXAMINATION: Bleeding; Clinical: Positive test with abdominal pain and cramping.; ; Technique: Real time goel scale ultrasound examination using transabdominal and; transvaginal technique with color Doppler evaluation of the maternal ovaries and; gestation if possible.; ; Findings:; Heterogeneous retroverted retroflexed uterus measures 9.4 x 4.4 x 6.2 cm with; suggestion for septate configuration. Decidual reaction thickens the endometrium; to 2.5 cm without intrauterine identified. Maternal ovaries are normal; in appearance and vascularity without torsion. Right ovary measures 3.1 x 2.2 x; 2.5 cm and includes 1.6 cm hemorrhagic corpus luteal cyst. Right RI equal 0.57.; Left ovary measures 2.6 x 2.6 x 2.8 cm; RI equal 0.54. No pelvic fluid.; ; Impression:; 1. No intrauterine identified. Differential diagnosis includes early; as well as spontaneous and less likely ectopic (no; pelvic fluid or adnexal mass). Correlation with serial HCG levels recommended and; repeat ultrasound if necessary; 2. Possible septate versus bicornuate uterine configuration.; ; ; Signed by; Eugene Spence MD 04/28/2016 01:56 P; Outcome: 17:55 Discharge ordered by Provider. cc10 18:08 Discharge Assessment: Patient awake, alert and oriented x 3. No cognitive and/or dls functional deficits noted. Patient verbalized understanding of disposition instructions. patient administered narcotics - yes. Pt provided with safe discharge. The following High Risk Discharge criteria are identified: None. Discharged to home via wheelchair, with significant other. Condition: stable Condition: improved. Discharge instructions given to patient, Instructed on discharge instructions, follow up and referral plans. medication usage, Demonstrated understanding of instructions, medications, Pt was receptive of discharge instructions/ teaching. Prescriptions given X 1. Ultrasound Study completed. Property sent home with patient. 18:13 Patient left the ED. dls Signatures: Dispatcher Med[employer] EDMS Liliana Coats RN RN dls Capri Sawant, Reg Reg gb Raphael Trujillo, Reg Reg lg Cezar, Keila sm5 Tisha Fagan, WEAPONS OFFICER WEAPONS OFFICER ar3 Mark Tamez PA PA btw Castle, Jennifer, RN RN jc4 Zayda Valentine gr2 Lin Kim RN RN albad Balbir Martinez, ISIDORO PACole cc10 Sue Girard, WEAPONS OFFICER WEAPONS OFFICER rs6 Corrections: (The following items were deleted from the chart) 11:57 11:54 Presenting complaint: Patient states: c/o abdominal cramping, heavy vaginal ead bleeding. reports going through 2 pads in one hour. ead 11:57 11:54 Risk factors: The patient reports no loss of conciousness prior to arrival. This ead patient has not had a hysterectomy. This patient has not begun menopause. ead 12:02 11:54 Presenting complaint: Patient states: c/o abdominal cramping, heavy vaginal ead bleeding. reports going through 2 pads in one hour. LMP 03/14/16. ead Chart Complete MTDD
--- NOTE | 2016-05-07 12:43 | EDDOCDS ---
Physician Documentation [facility] Name: Fabienne Ayala Age: 40 yrs Sex: Female : 1975 Arrival Date: 04/28/2016 Time: 11:39 Bed I7 / 29 Private MD: Other - Complete Info On Cds Disposition: 04/28/16 17:55 Discharged to Home/Self Care. Impression: Spontaneous . - Condition is Stable. - Discharge Instructions: Miscarriage. - Prescriptions for Naprosyn 500 mg Oral Tablet - take 1 tablet by ORAL route 2 times per day take with food; 30 tablet. - Medication Reconciliation, Local Pharmacy Hours form. - Follow up: Emergency Department; When: As needed; Reason: Worsening of conditions. Follow up: Ana Nunn, OB; When: Call to arrange an appointment; Reason: Wound/Symptom Recheck, Recheck today's complaints, Worsening of conditions, Continuance of care. - Problem is an ongoing problem. - Symptoms have improved. Historical: - Allergies: Dilaudid (Swelling); - Home Meds: 1. pre humera daily - PMHx: none; - PSHx: Cholecystectomy; Breast Reduction; vein removal; - Social history: Smoking status: Patient states was never smoker of tobacco. No barriers to communication noted, The patient speaks fluent Serbian, Speaks appropriately for age. - Family history: Not pertinent. - : The pt / caregiver states he / she is not on anticoagulants. Home medication list is obtained from the patient. - Exposure Risk Screening:: None identified. 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 4 in. (162.56 cm) (R); Pain 8/10; 15:28 BP 111 / 70 RA Supine (auto/reg); Pulse 81; Resp 18; Temp 98.9(O); Pulse Ox 100% on rs6 R/A; Pain 7/10; 16:14 BP 93 / 54 LA Supine (auto/lg); Pulse 57; Resp 18; Temp 98.6(O); Pulse Ox 98% on R/A; rs6 Pain 0/10; 16:45 BP 97 / 54; Pulse 70; Resp 18; Pulse Ox 98% on R/A; Pain 7/10; dls 17:27 BP 100 / 55 RA Supine (auto/lg); Pulse 73; Resp 18; Pulse Ox 97% on R/A; rs6 18:07 BP 109 / 57; Pulse 85; Resp 18; Pulse Ox 98% on R/A; Pain 4/10; dls 11:41 Body Mass Index 35.53 (93.89 kg, 162.56 cm) gr2 MDM: 12:32 Complete Blood Count Ordered. EDMS 12:32 Hcg, Serum Quantitative Ordered. EDMS 12:32 Type & Screen Ordered. EDMS 12:32 Urinalysis Ordered. EDMS 12:32 Urine Culture Ordered. EDMS 12:32 US 1st trimester Ordered. EDMS 13:05 Financial registration complete. lg 13:12 Urinalysis Reviewed. btw 13:12 Complete Blood Count Reviewed. btw 13:18 TRANSVAGINAL US Ordered. EDMS 13:21 DUPLEX SCAN LIMITED (DOPPLER) Ordered. EDMS 13:42 Hcg, Serum Quantitative Reviewed. btw 13:42 Type & Screen Reviewed. btw 13:47 Type & Screen Reviewed. btw 15:15 [facility] [place] Agreement was scanned into [employer] and attached to record. lg 15:39 morphine 4 mg Sub-Q once ordered. btw 16:15 NS 0.9% 1000 ml IV at bolus once ordered. cc10 16:16 IV Saline Lock ordered. cc10 16:16 US 1st trimester Reviewed. cc10 04/29 13:29 T-Sheet-- Draft Copy was scanned into [employer] and attached to record. gb Administered Medications: 04/28 15:43 Drug: morphine 4 mg [morphine 4 mg/mL intravenous cartridge (1 mL)] Route: Sub-Q; Site: dls left upper arm; 16:45 Drug: NS 0.9% 1000 ml [sodium chloride 0.9 % intravenous solution] Route: IV; Rate: dls bolus; Site: right hand; Signatures: Dispatcher [employer] EDLiliana Tucker RN RN dls Capri Sawant, Reg Reg gb Raphael Trujillo, Reg Reg lg Mark Tamez PA PA btw Lin KimRN RN Balbir Yee, PARupertC PARupertC cc10 The chart was reviewed and I authenticate all verbal orders and agree with the evaluation and treatment provided.Corrections: (The following items were deleted from the chart) 16:15 16:15 Large bore IV x 2 ordered. cc10 cc10 Attachments: 15:15 [facility] [place] Payment Agreement lg Chart Complete MTDD
== END 2016-04-28 18:13 | disposition home or self-care (01) ==
LOC: M ED 11:39
DX: N93.9 Abnormal uterine and vaginal bleeding, unspecified (principal); Z32.01 Encounter for pregnancy test, result positive; Z90.49 Acquired absence of other specified parts of digestive tract; Z79.899 Other long term (current) drug therapy; Z88.5 Allergy status to narcotic agent

== ENCOUNTER 2016-07-29 17:35 | Day surgery (SDC) | payer OTHER ==
[~2016-07-29] VITALS: Ht 162.6 cm; Wt 86.2 kg
[2016-07-29] MEDS ORDERED: no meds (17:54)
[2016-07-29] MEDS ORDERED: NS 500 ML IV ONE (18:00)
[2016-07-29 19:13] LABS: BASO % 0.3 % (0.0-1.0); EOS # 0.1 K/mm3 (0.0-0.50); EOS % 1.2 % (0.0-3.0); LARGE UNSTAINED CELL # 0.1 K/mm3 (0.0-0.4); LARGE UNSTAINED CELL % 1.4 % (0.0-4.0); LYMPH # 2.4 K/mm3 (1.5-4.5); LYMPH % 30.2 % (24.0-44.0); MEAN CORPUSCULAR HEMOGLOBIN 28.3 pg (27.0-33.0); MEAN CORPUSCULAR HGB CONC 32.9 g/dl (32.0-36.5); MEAN CORPUSCULAR VOLUME 85.9 fl (80.0-96.0); MONO # 0.4 K/mm3 (0.0-0.8); MONO % 4.5 % (0.0-5.0); NEUTROPHILS % 62.4 % (36.0-66.0); PLATELET COUNT, AUTOMATED 209 k/mm3 (150-450)
--- NOTE | 2016-07-29 19:30 | REPUSA ---
CLINICAL HISTORY: Concern for ectopic. Spotting, bleeding last . No hCG available from visi t. Patient states miscarriage in 04/2016. TECHNIQUE: Realtime sonographic images were obtained in multiple projections. COMMENTS: The uterus measures 7.6 x 4.8 x 6.9 cm and is retroverted. There is a 3.1 x 2.9 x 2.6 cm hypoechoic irregular area in the right fundal endometrium. RPOC versus submucosal fibroid. The right ovary measures 3.4 x 2.9 x 2.6 cm. RI=0.35. The left ovary measures 3.7 x 3.0 x 2.7 cm. RI=0.47. Both ovaries are free of masses. IMPRESSION: 3.1 x 2.9 x 2.6 cm hypoechoic irregular area in the right fundal endometrium. RPOC versus submucosal fibroid. Thank you for your kind referral of this patient. We appreciate the opportunity to participate in [facility] patient's care.
[2016-07-29 19:35] LABS: ALBUMIN 3.7 GM/DL (3.2-5.2); ALBUMIN/GLOBULIN RATIO 0.93 (1.00-1.93); ALKALINE PHOSPHATASE 103 U/L (45-117); ALT/SGPT 27 U/L (12-78); ANION GAP 6 MEQ/L (8-16); AST/SGOT 12 U/L (15-37); BILIRUBIN,DIRECT 0.2 MG/DL (0.0-0.2); BILIRUBIN,TOTAL 0.7 MG/DL (0.2-1.0); BLOOD UREA NITROGEN 10 MG/DL (7-18); CALCIUM LEVEL 9.8 MG/DL (8.5-10.1); CARBON DIOXIDE LEVEL 28 MEQ/L (21-32); CHLORIDE LEVEL 107 MEQ/L (98-107); CREATININE FOR GFR 0.57 MG/DL (0.55-1.02); GLOMERULAR FILTRATION RATE > 60.0 (>60); GLUCOSE, FASTING 89 MG/DL (70-105); POTASSIUM SERUM 3.8 MEQ/L (3.5-5.1); SODIUM LEVEL 141 MEQ/L (136-145); TOTAL PROTEIN 7.7 GM/DL (6.4-8.2)
[2016-07-29] MEDS ORDERED: NS 1,000 ML IV ONE (20:00)
[2016-07-29] MEDS ORDERED: ONDANSETRON 4MG/2ML VIAL (J2405) IV ONE (20:00)
[2016-07-29] MEDS ORDERED: MORPHINE 4 MG/ML 1ML SYRINGE IV ONE (20:00)
--- NOTE | 2016-07-29 21:10 | REPUSA ---
CT of the abdomen and pelvis without contrast Clinical statement: Pain. Miscarriage. Technique: Multiple axial CT images were obtained from the base of the lungs to the floor of the pelv is utilizing 5 mm axial slices without administration of contrast. Coronal and sagittal reconstructio ns were also obtained. No comparison is available. Correlation is made with ultrasound of 07/29/2016. Findings: Chest: The visualized lung bases are clear. Abdomen: The kidneys are normal in size bilaterally. There is no evidence of hydronephrosis.. A 1 mm nonobstructing stone is seen in the inferior left renal collecting system. The liver, spleen, pancrea s, and adrenal glands are unremarkable. The aorta demonstrates normal caliber and contour. There is n o abdominal lymphadenopathy or ascites. Pelvis: The bowel is unremarkable, with no obstructive or inflammatory changes. The appendix is elvin l. The urinary bladder is within normal limits. There is no pelvic lymphadenopathy or ascites.. The u terus appears grossly unremarkable. The other pelvic structures appear unremarkable. Bones: There are no suspicious osseous abnormalities seen. Impression: 1. No focal pelvic abnormality appreciated. 2. Nonobstructing left renal nephrolithiasis. 3. No obstructive or inflammatory bowel changes.
[2016-07-29] MEDS ORDERED: cefTRIAXone SOD 1 GM in D5W MINI-BAG PLUS 50 ML IV ONE (21:15)
[2016-07-29] MEDS ORDERED: TYLE325T5 PO (21:32)
[2016-07-29] MEDS ORDERED: OXYC1TAB23 PO (21:32)
[2016-07-29] MEDS ORDERED: CETI10TA PO (21:32)
[2016-07-29] MEDS ORDERED: MACR100C3 PO (21:42)
[2016-07-29] MEDS ORDERED: ceFAZolin 1GM INJ (J0690) As Ordered ONE ×2 (23:07→23:08)
[2016-07-29] MEDS ORDERED: PROPOFOL 200 MG/20 ML VIAL As Ordered ONE ×2 (23:28→23:38)
[2016-07-29] MEDS ORDERED: MIDAZOLAM INJ 2 MG/2 ML VIAL (J2250) As Ordered ONE (23:28)
[2016-07-29] MEDS ORDERED: fentaNYL 100 MCG/2 ML INJECTION (J3010) As Ordered ONE ×2 (23:28→23:39)
[2016-07-29] MEDS ORDERED: ACETAMINOPHEN 650 MG SUPP As Ordered ONE (23:41)
[2016-07-30] MEDS ORDERED: fentaNYL 100 MCG/2 ML INJECTION (J3010) IV PRN (00:15)
[2016-07-30] MEDS ORDERED: ONDANSETRON 4MG/2ML VIAL (J2405) IV PRN (00:15)
[2016-07-30] MEDS ORDERED: LR 1,000 ML IV SCH (00:15)
[2016-07-30] MEDS ORDERED: oxyCODONE 5MG TAB PO PRN (00:30)
[2016-07-30] MEDS ORDERED: IBUPROFEN 600 MG TAB PO PRN (00:30)
[2016-07-30 00:43] VITALS: BP 123/71
[2016-07-30 06:11] VITALS: BP 106/66
--- NOTE | 2016-07-30 18:24 | HPE ---
DATE OF ADMISSION: 07/29/2016 This lady is a 40-year-old 3, para 1, now abortio 2, who had a spontaneous miscarriage 04/28/2016. At that time she had a quantitative beta hCG of 6813. Had an ultrasound, which did not demonstrate a viable intrauterine or an ectopic . For some reason, it suggested that she had a septate uterus. She then had a followup with her primary care in May. Was told 2 weeks after her miscarriage on April 28 that bleeding and cramping were within normal after having a spontaneous miscarriage. In May 2016, she saw her primary care, who did not do an ultrasound but suggested that the bleeding was still a normal event. She then subsequently called the nurse help line and was then told that this is still within normal limits. On 07/18/2016, she had a repeat quantitative beta hCG with no ultrasound and it was 168, and she continued to bleed. She then went back on 07/25/2016, had a quantitative hCG, which was 115, and was told that it was coming down, that it was within normal limits, and that the bleeding that she had was persisting and was within normal limits. On July 29 she presented to the emergency room with right lower quadrant pain, quantitative beta hCG of 83, a urine which showed leukocyte esterase 3+, blood 3+, specific gravity of 1020, pH of 6, and +1 protein. She had an ultrasound, which showed debris within the uterus, especially in the right side. Could not rule out a submucosal fibroid, but it was highly suggestive of having had retained products of conception, and reviewing the ultrasound pictures, there is some vascular flow. There was some suggestion that she had a kidney stone or could questionably have a kidney stone. She had a CT of the abdomen and pelvis, and there was no evidence to suggest kidney stone at that time. She, because of her urine having leukocyte esterase, was given Unisom as an intravenous (IV) bolus times one. She will be given 2 grams of Ancef preoperatively because of prolonged retained products of conception, and she will go home on Bactrim as a cover until the urine 24-hour culture comes back. She has had one previous spontaneous vaginal delivery 16 years ago, a female. She was on bedrest because of antepartum bleeding since 5 months, but everything resolved, and there was no issue. She had a spontaneous many years ago, positive test with no dilatation and curettage (D and C), and presently has had retained products of conception. 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 She has had in the past surgery, a cholecystectomy, bilateral breast reduction, and she in 2005 had removal of a varicose vein because of questionable superficial phlebitis, and she was on aspirin for 3 months but no other prophylaxis at that time. Presently, she appears in acute distress because of her pain, rating 9/10. ALLERGIES: She is allergic to DILAUDID. Has been given some other intravenous (IV) medication. Her blood pressure was 155/80, her pulse was 89, respirations are 18, temperature is not available. On the rest of the examination, she is normal normocephalic, atraumatic. Neck: Full range of motions. Pupils equal and reactive to light. Thyroid is midline. No jugular venous distention (JVD), bruits. Lungs are clear bilaterally to bases. No costovertebral angle (CVA) tenderness. No wheezes or rhonchi. Abdomen is soft. She has some suprapubic tenderness. Pelvic examination: The os is closed. There is a moderate to significant amount of bright red bleeding coming from there. She has no rashes, lesions, or pruritus. No arthralgia or myalgia. No complaints of cough, wheezes, shortness of breath, or dyspnea on exertion. She did have asthma induced by medication. She has allergies to Dilaudid. She has no chest pain. She is not bruising. Neurologic complete. No complaints of incontinence, urgency, or frequency. No nausea, vomiting, diarrhea, or constipation. No diabetic issues. She has no past history of abnormal Pap smears or sexually transmitted diseases (STDs). PAST MEDICAL HISTORY: Medication-induced asthma. PAST SURGICAL HISTORY: As mentioned above. FAMILY HISTORY: Noncontributory. She does not smoke, drink, or abuse drugs. 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 There is no domestic violence. In summary we have an advanced maternal age with prolonged retained products of conception, possible septate uterus, possible urinary tract infection. Our plan of management is to have a hysteroscopy, suction curettage, followed up with quantitative beta hCG in 4 days' time, and prophylactically cover her with antibiotic therapy.
--- NOTE | 2016-08-01 09:49 | RO ---
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 POSTOPERATIVE DIAGNOSES: Retained products of conception, normal uterus, urinary tract infection. OPERATION PROPOSED: Suction curettage. OPERATION PERFORMED: Suction curettage and hysteroscopy. SURGEON: Bradly Cleary MD PHOTOVOLTAIC POWER SYSTEMS ENGINEER: ANESTHESIA: General. ESTIMATED BLOOD LOSS: 50 mL. DESCRIPTION OF PROCEDURE: Under adequate anesthesia, prepped and draped in the lithotomy position, time-out was performed. Bladder was drained for 50 mL of clear urine. Weighted speculum in the vagina. Single-tooth tenaculum on the anterior lip of the cervix. Uterus sounded to depth of 7 cm. The cervix was already dilated. There was old blood at the os. A hysteroscope was introduced. Panoramic review revealed a normal intrauterine architecture, no evidence of septate uterus. The cornua on the right side had material and debris in it covering over the cornual opening to the tube on the right side. The left side was completely free. Establishing that this was a normal intrauterine architecture with retained products of conception, the cervix was then dilated to a Kristy #8, curved suction curette applied. Curettage of the cavity was smooth. Uterus placed in anatomical position well contracted. The patient had been given appropriate antibiotics because of prolonged retained products of conception, and the patient is Rh positive, does not require RhoGAM. We sent to recovery in good condition with instrument and pad count correct. Total amount of fluids in was 150 mL, total amount out was 150 mL. The patient was sent to recovery in good condition.
== END 2016-07-30 06:35 | disposition home or self-care (01) ==
LOC: M ED 20:04 → M OROP 22:41
PROVIDERS: ATTEND Obstetrics & Gynecology
DX: O02.1 Missed abortion (principal); N39.0 Urinary tract infection, site not specified; J45.909 Unspecified asthma, uncomplicated
CPT/HCPCS: 59820; 74176; 76801; 76817; 80048; 80076; 81001; 83605; 83690; 84702; 85025; 86850; 86900; 86901; 87210; 87491; 87591; 88305; 93041; 96365; 96375; 99285; J0690; J0696; J2250; J2405; J3010

== ENCOUNTER 2017-07-20 22:28 | Emergency (ER) | payer OTHER ==
[2017-07-21] MEDS: CLINDAMYCIN 150 MG CAP PO (01:45)
[2017-07-21] MEDS: OXYCODONE/APAP 5MG/325MG(BULK FOR ED) 1 TABLET PO (01:45)
== END 2017-07-21 02:01 | disposition home or self-care (01) ==
LOC: M ED 22:28
DX: L03.116 Cellulitis of left lower limb (principal); J45.909 Unspecified asthma, uncomplicated; Z88.5 Allergy status to narcotic agent; Z91.010 Allergy to peanuts
CPT/HCPCS: 93971

== ENCOUNTER → 2017-08-11 | Outpatient (CLI) | payer OTHER | LOC: M RAD 12:14 | DX: M79.605 Pain in left leg (principal); Z91.81 History of falling | CPT/HCPCS: 93971 ==

== ENCOUNTER → 2017-09-28 | Outpatient (CLI) | payer OTHER | LOC: M RAD 13:11 | DX: I87.393 Chronic venous hypertension (idiopathic) with other complications of bilateral lower extremity (principal); M79.604 Pain in right leg; M79.605 Pain in left leg | CPT/HCPCS: 93970 ==